=== PATIENT | male | born 1975 | race Caucasian/White ===

== ENCOUNTER → 2018-01-05 | Outpatient (CLI) | payer OTHER ==
--- NOTE | 2018-01-05 20:14 | MR ---
EXAMINATION TYPE: MR knee RT wo con DATE OF EXAM: 01/05/2018 COMPARISON: NONE HISTORY: Right Knee pain with swelling x3 months TECHNIQUE: Multiplanar, multisequence imaging of the right knee is performed without IV contrast. FINDINGS: MEDIAL MENISCUS: Abnormal increased signal present within the posterior horn the medial meniscus is c onsistent with tear and abnormal signal extends into the body, tear of the medial meniscus may be com plex, abnormal signal does extend into the anterior horn LATERAL MENISCUS: Anterior and posterior horns are intact without tear. CRUCIATE LIGAMENTS: The anterior and posterior cruciate ligaments are intact and unremarkable. COLLATERAL LIGAMENTS: The medial collateral ligament and lateral collateral ligament complex are inta ct and unremarkable. EXTENSOR MECHANISM: Visualized quadriceps and patellar tendons are intact. EFFUSION: Small joint effusion POPLITEAL CYST: Semimembranosus gastrocnemius cyst is present measuring approximately 3.3 x 1.9 x 1. 0 cm. TRICOMPARTMENT SPACES: Some joint space loss present in the medial compartment CARTILAGE: Grade 2 to grade III chondromalacia present in the medial compartment BONE MARROW SIGNAL: No focal abnormal marrow signal is appreciated. OTHER: Some small meniscal cysts are present posteriorly and medially.. IMPRESSION: Medial meniscal tear, small joint effusion. Chen cyst. Osteoarthritis.
== END ==
LOC: RADMRIMAIN 18:46
PROVIDERS: ATTEND Orthopaedic Surgery
DX: S83.241A Other tear of medial meniscus, current injury, right knee, initial encounter (principal); M71.21 Synovial cyst of popliteal space [Baker], right knee; M17.11 Unilateral primary osteoarthritis, right knee

== ENCOUNTER → 2018-05-08 | Outpatient (CLI) | payer OTHER ==
[2018-05-08 08:28] LABS: Basophils % (A) 1 %; Eosinophils # (A) 0.1 k/uL (0-0.7); Eosinophils % (A) 2 %; HCT 44.8 % (39.0-53.0); HGB 15.1 gm/dL (13.0-17.5); Lymphocytes # (A) 1.6 k/uL (1.0-4.8); Lymphocytes % (A) 31 %; MCH 29.7 pg (25.0-35.0); MCHC 33.7 g/dL (31.0-37.0); MCV 88.2 fL (80.0-100.0); Mean Platelet Volume 6.8; Monocytes # (A) 0.4 k/uL (0-1.0); Monocytes % (A) 7 %; Neutrophils # (A) 2.9 k/uL (1.3-7.7); Neutrophils % (A) 57 %; Platelet Count 211 k/uL (150-450); RBC 5.08 m/uL (4.30-5.90); RDW 12.7 % (11.5-15.5); WBC 5.1 k/uL (3.8-10.6)
[2018-05-08 08:40] LABS: Potassium 4.4 mmol/L (3.5-5.1)
== END | disposition home or self-care (01) ==
LOC: LABPAT 07:50
PROVIDERS: ATTEND Orthopaedic Surgery
DX: Z01.812 Encounter for preprocedural laboratory examination (principal); M23.91 Unspecified internal derangement of right knee
CPT/HCPCS: 36415; 80051; 85025

== ENCOUNTER 2018-05-11 06:07 | Day surgery (SDC) | payer OTHER ==
[2018-05-05 08:22] VITALS: BMI 27.3
--- NOTE | 2018-05-10 18:08 | HP ---
HISTORY AND PHYSICAL DATE OF SURGERY: 05/11/2018 Nehemias Hirsch is a 43-year-old patient seen with progressive right knee pain. Treatment options were discussed with him. He elected to proceed with arthroscopy. Consent was obtained. PAST MEDICAL HISTORY: Asthma. PAST SURGICAL HISTORY: Noncontributory. DAILY MEDICATIONS: None reported. ALLERGIES: PENICILLIN. SOCIAL HISTORY: Patient denies tobacco use. PHYSICAL EVALUATION OF RIGHT KNEE: Range of motion 0 to 130 degrees. Tenderness, medial joint line. Positive medial Dania's. Plus 1 Alber's. Ligaments otherwise are stable. Painless rotation hip. Distal neurovascular exam intact. RIGHT KNEE RADIOGRAPHS: Right knee radiographs revealed mild osteoarthritis. MRI of the right knee revealed medial meniscal tear and osteoarthritis. IMPRESSION: 1. Internal derangement of right knee with medial meniscal tear. 2. Asthma. PLAN: Right knee arthroscopy with partial meniscectomy and debridement. MMODL / IJN: [id number] /
[~2018-05-11 06:07] MED LIST: HYDROmorphone 0.5 MG/0.5 ML SYRINGE IVP PRN; LACTATED RINGERS 1,000 ML IV SCH; MIDAZOLAM 2 MG/2 ML VIAL IV PRN; ONDANSETRON 4 MG/2 ML VIAL IVP ONE; ceFAZolin IN SWFI 2 GM/20 ML SYRINGE IVP ONE
[2018-05-11 06:50] VITALS: RESP 16; TEMP 97.3
[2018-05-11] MEDS ORDERED: LIDOCAINE 1% 20 ML VIAL (10MG/ML) FOR IV START IV ONE (07:09)
[2018-05-11] MEDS ORDERED: KETOROLAC 30 MG/ML 1 ML VIAL ONE (07:29)
[2018-05-11] MEDS ORDERED: SUCCINYLCHOLINE CHLORIDE 100 MG/5 ML SYR IV ONE (07:29)
[2018-05-11] MEDS ORDERED: LIDOCAINE 1% INJ 10MG/ML (20 ML MDV) ONE (07:29)
[2018-05-11] MEDS ORDERED: MIDAZOLAM 2 MG/2 ML VIAL ONE (07:29)
[2018-05-11] MEDS ORDERED: PROPOFOL 10 MG/ML 20 ML VIAL IV ONE (07:29)
[2018-05-11] MEDS ORDERED: fentaNYL (PF) 50 MCG/ML 2 ML AMP ONE (07:29)
[2018-05-11] MEDS ORDERED: BUPIVACAINE (PF) 0.5% 30 ML VIAL INTRAARTIC ONE ×2 (07:48→08:08)
--- NOTE | 2018-05-11 08:34 | P.OP ---
Date of Procedure: 05/11/18 Preoperative Diagnosis: Internal derangement right knee Postoperative Diagnosis: 1. Tear medial and lateral meniscus right knee 2. Reactive synovitis medial, lateral and suprapatellar compartments right knee 3. Medial plica right knee 4. Grade 2 chondromalacia medial femoral condyle right knee 5. Grade 1/2 chondromalacia patella right knee Procedure(s) Performed: 1. Arthroscopic partial medial and lateral meniscectomy right knee 2. Arthroscopic partial synovectomy medial, lateral and suprapatellar compartments right knee 3. Arthroscopic resection medial plica right knee 4. Arthroscopic chondroplasty medial femoral condyle right knee 5. Arthroscopic chondroplasty patella right knee Anesthesia: RUTHA, local Surgeon: Ifeanyi Walsh Estimated Blood Loss (ml): 7 Pathology: none sent Condition: stable Disposition: PACU Indications for Procedure: 43-year-old patient seen with progressive right knee pain. After treatment options were discussed, he elected to proceed with arthroscopy. Operative Findings: see description of procedure Description of Procedure: Patient was taken to the operative suite. Patient underwent a general anesthetic by the department of anesthesia. Patient was given preoperative antibiotics. The right lower extremity was placed in a well-padded arthroscopic leg zafar. The right leg was prepped and draped in the normal sterile orthopedic fashion. A lateral parapatellar and suprapatellar incision was made. Trochars were inserted. Arthroscopy was initiated. Suprapatellar pouch revealed diffuse thick reactive synovitis. The patellofemoral joint appeared to articulate congruently. There was grade 1/2 chondromalacia patella with some osteochondral tears. The scope was guided into the medial gutter. There was a medial plica which did seem to impinge along the medial femoral condyle with range of motion. The scope was then guided into the medial compartment. A medial parapatellar incision was made. Trocar inserted followed by probe. There was a bucket-handle white zone tear mid body medial meniscus and a complex bucket-handle white zone tight tear posterior horn medial meniscus. There was an area of grade 2 chondromalacia medial femoral condyle some osteochondral tears weightbearing central portion medial femoral condyle. There was thick reactive synovitis anteriorly. I performed a partial medial meniscectomy down to stable tissue. I performed a chondroplasty of the medial femoral condyle down to stable tissue. I performed a partial synovectomy area the residual meniscus and osteochondral surfaces were probed and found to be stable. There was good decompression of that reactive synovitis noted. Scope and probe were then guided into the intercondylar notch. Cruciates were identified, probed and found to be stable. The scope and probe were then guided into lateral compartment. There was a radial tear mid body lateral meniscus. There was reactive synovitis anteriorly. There was no chondromalacia. I performed a partial lateral meniscectomy down to stable tissue. I performed a partial synovectomy decompressing the thick reactive synovitis. The residual meniscus was stable. The scope was in guided back into the suprapatellar compartment. I introduced a motorized shaver into the super patellar compartment debriding some piecemeal fragments of meniscus I encountered. I now resected that medial plica. I now performed a chondroplasty of the patella down to stable tissue. I now performed a partial synovectomy decompressing the thick reactive synovitis in the suprapatellar compartment. The shaver was removed. I took the knee through range of motion and noted that the medial plica had been completely resected was no impingement of the medial femoral condyle. I now took one more look on the entire knee, no residual debris. Instruments were now removed from the joint. The joint was infiltrated with .5% Marcaine. Steri-Strips were applied to the portal sites. Sterile dressings were applied. The patient was placed into a SHITAL hose. No tourniquet was utilized. The patient was awakened, transferred to a bed and taken to recovery stable satisfactory condition.
[2018-05-11 09:57] VITALS: BP 130/80; PULSE 63
== END 2018-05-11 10:33 | disposition home or self-care (01) ==
LOC: OR 06:07
PROVIDERS: ATTEND Orthopaedic Surgery
DX: S83.241A Other tear of medial meniscus, current injury, right knee, initial encounter (principal); S83.281A Other tear of lateral meniscus, current injury, right knee, initial encounter; X58.XXXA Exposure to other specified factors, initial encounter; M65.861 Other synovitis and tenosynovitis, right lower leg; M67.51 Plica syndrome, right knee; M22.41 Chondromalacia patellae, right knee; J45.909 Unspecified asthma, uncomplicated; Z88.0 Allergy status to penicillin
CPT/HCPCS: 29880; J2250; J2405; J2001; J3010; J1885; J0330; J2704; J0690

== ENCOUNTER → 2019-10-02 | Outpatient (CLI) | payer OTHER ==
--- NOTE | 2019-10-02 14:10 | XR ---
EXAMINATION TYPE: XR chest 2V DATE OF EXAM: 10/02/2019 COMPARISON: NONE TECHNIQUE: PA and lateral views submitted. HISTORY: Chest pain FINDINGS: The lungs are clear and there is no pneumothorax, pleural effusion, or focal pneumonia. No overt fa ilure. Hypertrophic change of the spine. IMPRESSION: 1. No acute process.
== END | disposition home or self-care (01) ==
LOC: RADXRYALE 12:46
PROVIDERS: ATTEND Internal Medicine
DX: R05 Cough (principal)
CPT/HCPCS: 71046

== ENCOUNTER 2020-03-09 11:36 | Emergency (ER) | payer OTHER ==
[2020-03-09 11:41] VITALS: BP 143/85; PULSE 72; RESP 18; TEMP 98
[2020-03-09] MEDS ORDERED: PROPARACAINE 0.5% OPHTH DROPS 15 ML BTL BOTH EYES STA (11:54)
[2020-03-09] MEDS ORDERED: FLUORESCEIN STRIPS 1 MG STRIP BOTH EYES ONE (12:01)
[2020-03-09] MEDS ORDERED: ARTIFICIAL TEARS-HYPROMELLOSE DROPS 15 ML BTL BOTH EYES STA (12:18)
[2020-03-09] MEDS ORDERED: TOBRAMYCIN 0.3% OPHTH OINT 3.5 GM TUBE BOTH EYES STA (12:20)
--- NOTE | 2020-03-09 12:23 | ED ---
Eye Problem HPI - General Chief complaint: Eye Problems Stated complaint: eye problems Time Seen by Provider: 03/09/20 11:52 Source: patient, RN notes reviewed Mode of arrival: ambulatory Limitations: no limitations - History of Present Illness Initial comments: This a 44-year-old male presents emergency Department chief complaint of bilateral eye irritation. Patient states started yesterday. Patient states he was outside all day long states that he was exposed long period of sun and wind. Patient states that his eye started to feel very irritated nighttime he use some Visine states that it made it worse. Patient states that his vision is only blurred when his eyes are tearing. Patient denies any trauma denies any chemical use. Patient does not wear any contacts or glasses. Patient states that his eyes just over a scratchy irritated at this time. - Related Data Previous Rx's Medication Instructions Recorded Hydrocodone/Acetaminophen [Saxis 1 each PO Q6HR PRN #28 tab 05/11/18 5-325] Allergies Allergy/AdvReac Type Severity Reaction Status Date / Time Penicillins Allergy Unknown Unknown Verified 03/09/20 11:37 Childhood Review of Systems ROS Statement: Those systems with pertinent positive or pertinent negative responses have been documented in the HPI. ROS Other: All systems not noted in ROS Statement are negative. Past Medical History Past Medical History: No Reported History History of Any Multi-Drug Resistant Organisms: None Reported Past Surgical History: Ear Surgery, Joint Replacement Additional Past Surgical History / Comment(s): ear surgery as child, R knee Past Anesthesia/Blood Transfusion Reactions: No Reported Reaction Past Psychological History: No Psychological Hx Reported Smoking Status: Never smoker Past Alcohol Use History: Occasional Past Drug Use History: Marijuana - Past Family History Mother Family Medical History: No Reported History General Exam Limitations: no limitations General appearance: alert, in no apparent distress Head exam: Present: atraumatic, normocephalic, normal inspection Eye exam: Present: PERRL, EOMI, conjunctival injection, other (Fluorescein dye and lamp were used to evaluate eye, there is some noted speckled uptake consistent with keratitis). Absent: normal appearance, scleral icterus, periorbital swelling ENT exam: Present: normal exam, mucous membranes moist Neck exam: Present: normal inspection. Absent: tenderness, meningismus, lymphadenopathy Respiratory exam: Present: normal lung sounds bilaterally. Absent: respiratory distress, wheezes, rales, rhonchi, stridor Cardiovascular Exam: Present: regular rate, normal rhythm, normal heart sounds. Absent: systolic murmur, diastolic murmur, rubs, gallop, clicks Course Vital Signs 03/09/20 11:38 Temperature 98 F Pulse Rate 72 Respiratory 18 Rate Blood Pressure 143/85 O2 Sat by Pulse 99 Oximetry Medical Decision Making - Medical Decision Making Patient had no blurred vision no visual changes. Patient symptoms are c onsistent with a keratitis probable prolonged exposure or eating be keratitis. Patient we given artificial drops, Tobrex ointment. He is advised follow-up with ophthalmology tomorrow return for any worsening symptoms. Disposition Clinical Impression: UV keratitis Disposition: HOME SELF-CARE Condition: Stable Instructions (If sedation given, give patient instructions): Keratitis (ED) Additional Instructions: Please return to the Emergency Department if symptoms worsen or any other concerns. Use artificial tears 3-4 times daily, use Tobrex ointment every 4 hours Is patient prescribed a controlled substance at d/c from ED?: No Referrals: Teresa Amezcua MD [Primary Care Provider] - 1-2 days Otoniel Bennett MD [STAFF PHYSICIAN] - 1-2 days Time of Disposition: 12:22
== END 2020-03-09 12:53 | disposition home or self-care (01) ==
LOC: EC 11:36
DX: H16.8 Other keratitis (principal); Z96.698 Presence of other orthopedic joint implants; Z88.0 Allergy status to penicillin
CPT/HCPCS: 99283